=== PATIENT | female | born 1980 | race Asian ===

== ENCOUNTER 2018-06-22 09:30 | Emergency (ER) | payer OTHER ==
[2018-06-22 09:49] VITALS: BMI 29.2
--- NOTE | 2018-06-22 10:01 | PDOC ---
History of Present Illness - General Chief Complaint: Nausea/Vomiting Stated Complaint: Nausea/Vomiting Time Seen by Provider: 06/22/18 09:51 - History of Present Illness Initial Comments: 38 year old female with no PMH presenting with nausea, vomiting, and diarrhea for the past day. Vomiting is NBNB and she had three episodes total between yesterday afternoon and today. She had one episode of NB diarrhea yesterday afternoon as well. Denies any sick contacts, recent travel, or unusual food injection. Denies any fevers, chills, abdominal pain, urinary symptoms, or other issues. LMP 06/15/18. 06/22/18 11:58 Past History - Past Medical History Allergies/Adverse Reactions: Allergies Allergy/AdvReac Type Severity Reaction Status Date / Time No Known Allergies Allergy Verified 06/22/18 09:41 Home Medications: Ambulatory Orders Famotidine [Pepcid -] 20 mg PO DAILY #7 tablet 06/22/18 Ondansetron [Zofran Odt -] 4 mg SL TID PRN #15 od.tablet 06/22/18 COPD: No - Immunization History Immunization Up to Date: Yes - Suicide/Smoking/Psychosocial Hx Smoking History: Never smoked Hx Alcohol Use: No Drug/Substance Use Hx: No Substance Use Type: None Review of Systems - Review of Systems Constitutional: No: Chills, Fever HEENTM: No: Tearing, Recent change in vision Respiratory: No: Cough, Shortness of Breath, Wheezing Cardiac (ROS): No: Chest Pain, Irregular Heart Rate ABD/GI: Yes: Diarrhea, Nausea, Vomiting : No: Dysuria, Discharge, Frequency Musculoskeletal: No: Joint Pain, Joint Swelling, Neck Pain Integumentary: No: Lumps Neurological: No: Numbness, Paresthesia, Seizure Psychiatric: No: Anxiety, Depression Endocrine: No: Flushing, Intolerance to Cold Hematologic/Lymphatic: No: Anemia, Blood Clots *Physical Exam - Vital Signs Last Vital Signs Temp Pulse Resp BP Pulse Ox 98.5 F 111 H 16 131/68 98 06/22/18 09:41 06/22/18 09:41 06/22/18 09:41 06/22/18 09:41 06/22/18 09:41 - Physical Exam General Appearance: Yes: Nourished, Appropriately Dressed. No: Apparent Distress HEENT: positive: EOMI, NADINE, Normal ENT Inspection, Normal Voice Neck: positive: Trachea midline, Normal Thyroid, Supple. negative: Tender, Rigid Respiratory/Chest: positive: Lungs Clear, Normal Breath Sounds. negative: Chest Tender, Respiratory Distress, Accessory Muscle Use Cardiovascular: positive: Regular Rhythm, Tachycardia. negative: Regular Rate Gastrointestinal/Abdominal: positive: Normal Bowel Sounds, Flat, Soft. negative : Tender Lymphatic: negative: Adenopathy, Tenderness Musculoskeletal: positive: Normal Inspection. negative: Decreased Range of Motion Extremity: positive: Normal Capillary Refill, Normal Inspection, Normal Range of Motion. negative: Tender Integumentary: positive: Normal Color, Dry, Warm Neurologic: positive: Fully Oriented, Alert, Normal Mood/Affect, Normal Response , Motor Strength 5/5 Moderate Sedation - Procedure Monitoring Vital Signs: Procedure Monitoring Vital Signs Temperature 98.5 F 06/22/18 09:41 Pulse Rate 111 H 06/22/18 09:41 Respiratory Rate 16 06/22/18 09:41 Blood Pressure 131/68 06/22/18 09:41 O2 Sat by Pulse Oximetry (%) 98 06/22/18 09:41 ED Treatment Course - LABORATORY CBC & Chemistry Diagram: 06/22/18 11:37 06/22/18 11:37 Medical Decision Making - Medical Decision Making 38 year old female with no PMH presenting with N/V/D and mild tachycardia. Patient is well appearing, has not had any N/V/D in our ED and is feeling better after 1 L NS + Zofran SL. 06/22/18 12:05 Labs wnl but UA pending. HR improved to 80s. This was likely a viral gastroenteritis. Will DC patients with follow up instructions and will personally call patient if UA is concerning. DC'd with zofran/ pepcid instructions. 06/22/18 12:20 *DC/Admit/Observation/Transfer Diagnosis at time of Disposition: Nausea & vomiting Qualifiers: Vomiting type: unspecified Vomiting Intractability: non-intractable Qualified Code(s): R11.2 - Nausea with vomiting, unspecified - Discharge Dispostion Condition at time of disposition: Stable - Prescriptions Prescriptions: Famotidine [Pepcid -] 20 mg PO DAILY #7 tablet Ondansetron [Zofran Odt -] 4 mg SL TID PRN #15 od.tablet PRN Reason: Nausea - Referrals Referrals: Nisa Malin MD [Primary Care Provider] - - Patient Instructions Printed Discharge Instructions: DI for Nausea -- Adult, DI for Vomiting -- Adult Additional Instructions: Please use the zofran and Pepcid at home as needed. You probably have a viral infection of your stomach that caused the diarrhea and vomiting. Follow up with your primary care doctor if you have any more questions. Please return to the ED if you have new or worsening symptoms. - Post Discharge Activity
[2018-06-22] MEDS ORDERED: ONDANSETRON *ODT* 4 MG TABLET SL ONE (10:21)
[2018-06-22] MEDS ORDERED: SODIUM CHLORIDE 0.9% 500 ML INFUS.BAG IV ONE (10:21)
[2018-06-22] MEDS ORDERED: ONDANSETRON *ODT* 4 MG TABLET ONE (10:34)
--- NOTE | 2018-06-22 10:47 | PDOC ---
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 Her kids have the same symptoms at home. No abd pain. No fevers. No chills. No cp/sob. No dysuria. No vaginal discharge or bleeding. Non toxic in appearance. - Physicial Exam PE: 06/22/18 10:55 Gen: aaox3, nad heart: +s1s2 tachy lungs: cta b/l abd: soft, nt/nd +bs ext: no c/c/e 06/22/18 10:56 - Medical Decision Making 06/22/18 10:47 I, Dr. Alexandra Mondragon, DO, attest that this document has been prepared under my direction and personally reviewed by me in its entirety. I further attest, that it accurately reflects all work, treatment, procedures and medical decision -making performed by me. 06/22/18 10:56 a/p: 38yo female with n/v and 1 episode of diarrhea last night -has to work tonight and wants to go to work tonight and tomorrow night -pt is nontoxic in appearance -no abd ttp -zofran given ODT -1L ns running -pt states feeling better after zofran -will give maalox for acid feeling in stomach -will most likely dc to home with zofran and pepcid 06/22/18 12:19 pt feeling better tolerated PO HR improved stable for dc to home labs reviewed *DC/Admit/Observation/Transfer Diagnosis at time of Disposition: Nausea & vomiting - Discharge Dispostion Condition at time of disposition: Stable Decision to Admit order: No - Prescriptions Prescriptions: Famotidine [Pepcid -] 20 mg PO DAILY #7 tablet Ondansetron [Zofran Odt -] 4 mg SL TID PRN #15 od.tablet PRN Reason: Nausea - Referrals Referrals: Nisa Malin MD [Primary Care Provider] - - Patient Instructions Printed Discharge Instructions: DI for Nausea -- Adult, DI for Vomiting -- Adult - Post Discharge Activity
[2018-06-22 10:54] LABS: HCG,QUALITATIVE URINE Negative
[2018-06-22] MEDS ORDERED: ACETAMINOPHEN 325 MG TABLET (FP) PO ONE (11:02)
[2018-06-22] MEDS ORDERED: MAG HYDROX/AL HYDROX/SIMETH 30 ML UNIT-DOSE CUP PO ONE (11:02)
[2018-06-22] MEDS ORDERED: ACETAMINOPHEN 325 MG TABLET (FP) ONE (11:08)
[2018-06-22] MEDS ORDERED: MAG HYDROX/AL HYDROX/SIMETH 30 ML UNIT-DOSE CUP ONE (11:09)
[2018-06-22 11:33] LABS: URINE APPEARANCE SLCLOUDY; URINE BILIRUBIN NEGATIVE (<2.0 mg/dL); URINE COLOR YELLOW; URINE GLUCOSE (UA) NEGATIVE (NEGATIVE); URINE KETONE NEGATIVE (NEGATIVE); URINE LEUK ESTERASE 1+ (NEGATIVE); URINE NITRITE NEGATIVE (NEGATIVE); URINE PROTEIN NEGATIVE (NEGATIVE)
[2018-06-22 11:43] LABS: BASO % 0.4 % (0-2.0); EOS % 0.2 % (0-4.5); HEMATOCRIT 40.6 % (32.4-45.2); HEMOGLOBIN 14.1 GM/dL (10.7-15.3); LYMPH % 10.5 % (8-40); MCH 29.6 pg (25.7-33.7); MCHC 34.8 g/dl (32.0-36.0); MEAN CELL VOLUME 85.1 fl (80-96); MEAN PLT VOLUME 11.7 fl (7.5-11.1); MONO % 3.6 % (3.8-10.2); NEUT % 85.3 % (42.8-82.8); PLATELET COUNT 287 K/MM3 (134-434); RBC 4.77 M/mm3 (3.60-5.2); RDW 13.8 % (11.6-15.6); WHITE BLOOD COUNT 8.1 K/mm3 (4.0-10.0)
[2018-06-22 12:13] LABS: ALK PHOS 65 U/L (45-117); ANION GAP 8 MMOL/L (8-16); BILIRUBIN,TOTAL 0.7 mg/dL (0.2-1); BLOOD UREA NITROGEN 17 mg/dL (7-18); CALCIUM 8.6 mg/dL (8.5-10.1); CHLORIDE 106 mmol/L (98-107); CO2 26 mmol/L (21-32); CREATININE 0.7 mg/dL (0.55-1.3); GLUCOSE,RANDOM 99 mg/dL (74-106); POTASSIUM 3.8 mmol/L (3.5-5.1); SGOT/AST 18 U/L (15-37); SGPT/ALT 43 U/L (13-61); SODIUM 139 mmol/L (136-145); TOT PROT 7.8 g/dl (6.4-8.2)
[2018-06-22 12:25] VITALS: BP 111/77; PULSE 94; TEMP 98.4
[2018-06-22 12:28] LABS: EPI CELLS FEW /HPF (FEW); URINE BACTERIA RARE /hpf (NONE SEEN); URINE MUCUS MODERATE
== END 2018-06-22 12:36 | disposition home or self-care (01) ==
LOC: JER 09:30
DX: A08.4 Viral intestinal infection, unspecified (principal); B97.89 Other viral agents as the cause of diseases classified elsewhere; R11.2 Nausea with vomiting, unspecified
CPT/HCPCS: 36415; 80053; 81003; 81015; 84703; 85025; 99283-25; Q0162